=== PATIENT | female | born 1940 | race Caucasian/White ===

== ENCOUNTER → 2018-10-19 | Outpatient (CLI) | payer MEDICARE ==
[~2018-10-19] MED LIST: DIAZ2 PO; HYDACE5325 PO; NAPR500 PO
== END | disposition home or self-care (01) ==
LOC: LAB SHORT 12:44 → LAB EV 12:44
DX: N39.0 Urinary tract infection, site not specified (principal)
CPT/HCPCS: 87086

== ENCOUNTER → 2018-11-21 | Outpatient (CLI) | payer MEDICARE | END | disposition home or self-care (01) | LOC: LAB SHORT 10:00 → LAB EV 10:00 | DX: N39.0 Urinary tract infection, site not specified (principal) | CPT/HCPCS: 87086 ==

== ENCOUNTER → 2019-04-16 | Outpatient (CLI) | payer MEDICARE ==
[~2019-04-16] MED LIST changes: +CITA20 PO; +COQ1050 MG PO; +FAMO40 PO; +FOLI1 PO; +JUICE PLUS FRUIT PO; +LOSA50 PO; +LOSARTAN-HCTZ1 EACH PO; +PANT40 PO; +PROM25 PO; +ROSU10TA PO; +ROXICODONE5 MG PO; +Tasprin325 MG PO; +VITAMIN D3 PO; +Vitamin C100 M1 PO; +WOMEN'S 50 PLU1 EACH PO; +[UNRECOGNIZED DRUG - OTHER] PO
== END | disposition home or self-care (01) ==
LOC: LAB SHORT 08:50 → PLD 08:50
DX: D48.5 Neoplasm of uncertain behavior of skin (principal)
CPT/HCPCS: 88305

== ENCOUNTER → 2019-11-27 | Outpatient (CLI) | payer MEDICARE ==
[2019-11-27 16:16] LABS: Appearance, Urine Cloudy (Clear); Bilirubin, Urine Neg (Neg); Color, Urine Yellow (P-Yellow); Glucose Qualitative, Urine Neg (Normal); Ketones, Urine 1+ (Neg); Leukocyte Esterase, Urine 2+ (Neg); Nitrite, Urine Pos (Neg); Protein, Urine 1+ (Neg); Urobilinogen, Urine 1+ (Normal)
[2019-11-27 16:17] LABS: Blood, Urine 2+ (Neg)
[2019-11-27 16:25] LABS: Bacteria Few /hpf; Squamous Epithelial Cells Rare /hpf (Few); Transitional Epithelial Cells Mod /hpf (0-Rare); White Blood Cells, Urine 25-50 /hpf (0-5)
== END | disposition home or self-care (01) ==
LOC: LAB SHORT 15:00 → LAB EV 15:00
PROVIDERS: Nurse Practitioner Family
DX: R30.9 Painful micturition, unspecified (principal)
CPT/HCPCS: 81001; 87077; 87086; 87186

== ENCOUNTER → 2021-08-19 | Outpatient (CLI) | payer MEDICARE | END | disposition home or self-care (01) | LOC: LAB SHORT 08:05 | DX: R30.9 Painful micturition, unspecified (principal) | CPT/HCPCS: 87077; 87086; 87186 ==

== ENCOUNTER → 2022-02-17 | Outpatient (CLI) | payer MEDICARE | END | disposition home or self-care (01) | LOC: LAB 15:00 → LAB SHORT 15:00 | DX: N39.0 Urinary tract infection, site not specified (principal) | CPT/HCPCS: 87077; 87086; 87186 ==

== ENCOUNTER 2022-06-08 08:18 | Day surgery (SDC) | payer MEDICARE ==
[~2022-06-08] VITALS: Ht 157.5 cm; Wt 65.6 kg
--- NOTE | 2022-06-08 10:35 | NUR ---
History, Chart, Medications and Allergies reviewed before start of procedure. Patient confirms NPO status and agrees with scheduled surgery. PT GLASSES PLACED CONCEALED SAFELY IN BELONGINGS BAG UNDERNEATH BED. HEARING AIDS LEFT IN, ANESTHESIOLOGIST CONFIRMED HE WILL TAKE THEM OUT WHEN NEEDED.
--- NOTE | 2022-06-08 11:26 | NUR ---
06/08/22 1126 Wilfredo Roca 1G CHRISTOPHER STARTED IN PREOP AT 1020
--- NOTE | 2022-06-08 17:57 | NUR ---
TELEPHONE CALL WITH HOSPITALIST DR RODRÍGUEZ R/T CONSULT FOR BLOOD PRESSURE 195 SYSTOLIC. RECEIVED ORDER FOR HYDRALAZINE 10 MG IV NOW.
--- NOTE | 2022-06-08 18:00 | NUR ---
LOST IV ACCESS AT THE SAME TIME RECEIVED ORDER FOR IV HYDRALAZINE. STEAMER GUM CANDY WAS ABLE TO GET IV ACCESS AND I THEN GAVE MED WITH A POSITIVE RESULT 126/51 55 PULSE. HOSPITALIST AWARE.
--- NOTE | 2022-06-08 18:38 | NUR ---
SHIFT SUMMARY PT A&OX4, SONIYA PO, VOIDING, AMB SBA FWW/GB & UP TO CHAIR, PAIN MANAGED 10/14. S/P L TKA, DRESSING CDI. WILL REPORT TO ONCOMING NOC RN.
[2022-06-08 19:28] LABS: Bun/Creatinine Ratio 23.2 (12.0-20.0); Calcium, Blood 6.3 mg/dL (8.5-10.1); Creatinine, Blood 0.56 mg/dL (0.40-1.00); Potassium, Blood 2.9 mmol/L (3.5-5.5)
--- NOTE | 2022-06-09 04:36 | NUR ---
SHIFT SUMMARY NO ACUTE CHANGES TO REPORT, PT HAS DONE WELL OVERNIGHT. POD 0 LEFT TOTAL KNEE. SHE REPORTS MINIMAL PAIN, SHE HAS BEEN UP AND AMBULATING WITH FWW. DRESSING INTACT TO LEFT LLE. SHE DENIES N/T IN EXT, ABLE TO WIGGLE TOES. PT HAS HAD ONE EPISODE OF VOMITTING THIS SHIFT THAT SHE REPORTS ACID REFLUX, SHE REPORTS THAT SHE HAS THIS ISSUE AT HOME, DECLINED ANTIEMETICS. SHE HAS BEEN ABLE TO TOLERATE PO INTAKE. POTASSIUM HAS BEEN REPLACED THIS SHIFT. IV ANTIBIOTICS INFUSED. IVF INFUSING. PT A/OX4, BED IN LOWEST POSITION, CALL LIGHT WITHIN REACH.
[2022-06-09 04:49] LABS: BASOPHILS ABSOLUTE AUTO 0.03 K/mm3 (0.00-0.23); BASOPHILS PERCENT AUTO 0 % (0-2); EOSINOPHILS ABSOLUTE AUTO 0.02 K/mm3 (0.00-0.68); EOSINOPHILS PERCENT AUTO 0 % (0-6); Hematocrit 31.6 % (33.0-51.0); Hemoglobin 10.7 g/dL (11.5-16.0); IMMATURE GRAN ABSOLUTE AUTO 0.02 K/mm3 (0.00-0.10); IMMATURE GRAN PERCENT AUTO 0 % (0-1); LYMPHOCYTES ABSOLUTE AUTO 0.94 K/mm3 (0.84-5.20); LYMPHOCYTES PERCENT AUTO 12 % (21-46); MONOCYTES PERCENT AUTO 7 % (4-13); Mean Corpuscular HGB 31.9 pg (26.0-34.0); Mean Corpuscular HGB Conc 33.9 g/dL (31.5-36.5); Mean Corpuscular Volume 94 fL (80-100); Mean Platelet Volume 9.7 fL (9.1-12.4); NEUTROPHILS ABSOLUTE AUTO 6.51 K/mm3 (1.96-9.15); NEUTROPHILS PERCENT AUTO 80 % (41-73); Platelet Count 196 K/mm3 (150-400); RDW Coefficient Variation 12.9 % (11.7-14.2); RDW Standard Deviation 44.5 fL (35.1-46.3); Red Blood Cell Count 3.35 M/mm3 (3.80-5.20); White Blood Cell Count 8.12 K/mm3 (4.00-11.30)
[2022-06-09 05:47] LABS: Magnesium, Blood 2.1 mg/dL (1.6-2.4)
[2022-06-09 05:56] LABS: Bun/Creatinine Ratio 25.1 (12.0-20.0); Creatinine, Blood 0.76 mg/dL (0.40-1.00); Potassium, Blood 4.4 mmol/L (3.5-5.5)
[2022-06-09 06:00] LABS: Calcium, Blood 8.6 mg/dL (8.5-10.1)
[2022-06-09] MEDS ORDERED: ASPI81CH PO (09:01)
[2022-06-09] MEDS ORDERED: ROXICODONE5 MG PO (09:02)
[2022-06-09] MEDS ORDERED: PROM12.5S PO (09:03)
--- NOTE | 2022-06-09 09:58 | NUR ---
0930 EMESIS AFTER WORKING WITH PT. PT STATES THAT THIS WAS FROM HER REFLUX AND THAT SHE HAS NO FURTHER NAUSEA. DISCHARGE INSTRUCTIONS REVIEWED WITH PATIENT AND HER AND THEY HAVE NO QUESTIONS REGARDING DISCHARGE. PT REPORTS HAS NO PAIN. AMBULATED WITH WALKER AND GAIT BELT AND STEADY ON FEET. PT AND HER IN AGREEMENT WITH DISCHARGE PLAN. ABD AND LISA WRAP SUPPLIED FOR HOME DRESSING CHANGES
--- NOTE | 2022-06-09 10:01 | NUR ---
1000 DISCHARGED TO HOME DENIES PAIN OR NAUSEA
== END 2022-06-09 10:11 | disposition home or self-care (01) ==
LOC: SURS 08:18 → ORSCMMR 08:18 → ORD 11:00 → SURS 13:48 → ORSCMMR 06-09 10:11
PROVIDERS: Internal Medicine; Orthopaedic Surgery
PROC: 0SRD0J9 Replacement of Left Knee Joint with Synthetic Substitute, Cemented, Open Approach (ICD-10-PCS; principal; 2022-06-08 11:00)
DX: M17.12 Unilateral primary osteoarthritis, left knee (principal); Z96.651 Presence of right artificial knee joint; I10 Essential (primary) hypertension; E78.00 Pure hypercholesterolemia, unspecified; Z79.899 Other long term (current) drug therapy
CPT/HCPCS: 36415; 73560-LT; 80048; 83735; 85025; 97110; 97116; 97162; A9270; C1713; C1776; J0171; J0360; J0610; J0690; J0735; J1885; J2370; J2405; J2704; J2765; J2795; J3010; J3370; J7120